=== PATIENT | female | born 1995 | race Caucasian/White ===

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

== ENCOUNTER 2019-10-11 01:14 | Emergency (ER) | payer MEDICAID, SELFPAY ==
[~2019-10-11] VITALS: Ht 165.1 cm; Wt 56.7 kg
[2019-10-11 01:34] VITALS: Ht 165.1 cm; Wt 56.7 kg
[2019-10-11 03:02] LABS: BASOPHIL % 0.4 % (0-2); PLATELET COUNT 189 x10^3mcL (130-400); RED CELL DISTRIBUTION WIDTH 12.4 % (11.5-14.5)
[2019-10-11 04:27] VITALS: BP 100/65
== END 2019-10-11 04:27 | disposition home or self-care (01) ==
LOC: ED 01:14
PROVIDERS: Emergency Medicine
DX: U07.1 COVID-19 (principal)
CPT/HCPCS: Q0092; U0003-CS